=== PATIENT | male | born 1995 | race Caucasian/White ===

== ENCOUNTER 2017-06-25 12:06 | Emergency (ER) | payer OTHER ==
[2017-06-25] MEDS: OXYMETAZOLINE HCL 0.05% 15 ML NASAL SPRAY NASAL (13:04)
== END 2017-06-25 13:10 | disposition home or self-care (01) ==
LOC: PHED 12:06
DX: R04.0 Epistaxis (principal); Z72.0 Tobacco use
CPT/HCPCS: 99281